=== PATIENT | female | born 1950 | race Caucasian/White ===

== ENCOUNTER → 2016-04-02 | Outpatient (CLI) | payer BC, MEDICARE ==
[2016-04-02 10:11] VITALS: BMI 26.8
== END | disposition home or self-care (01) ==
LOC: MNTWWP 08:53
PROVIDERS: ATTEND Internal Medicine Hematology & Oncology
DX: C85.15 Unspecified B-cell lymphoma, lymph nodes of inguinal region and lower limb (principal); R63.4 Abnormal weight loss; Z68.26 Body mass index [BMI] 26.0-26.9, adult

== ENCOUNTER → 2016-05-18 | Outpatient (CLI) | payer MEDICARE ==
--- NOTE | 2016-05-19 15:40 | PE ---
EXAMINATION TYPE: PET CT fusion skull to thigh DATE OF EXAM: 05/18/2016 10:15 AM COMPARISON: CT chest abdomen pelvis 02/28/2016 Prior PET/CT: 03/02/2016 HISTORY: Lymphoma TECHNIQUE: Following the intravenous administration of 12.6 by mCi of F-18 FDG, whole body images ar e performed from the skull base to the midthigh. Images are reviewed on the computer in the coronal, axial, and sagittal planes. Reconstructed rotating images are created on independent workstation an d reviewed on the computer. A localization and attenuation correction CT is performed in conjunctio n with the PET scan. DLP: 384.6 mGycm SCAN: Subsequent Scan Blood glucose: 92 mg/dL Average Mediastinum SUV: 1.5 Average Liver SUV: 2.7 FINDINGS: Overall there is been significant resolution of the radiotracer through enlarged lymphadeno albert. Previous masses are not apparent. Previous abnormal locations including the neck, mediastinum , upper abdomen and inguinal regions, which appear negative on the current study. NECK: No abnormal uptake THORAX: No abnormal uptake ABDOMEN: There is one focal area of increased uptake anterior to the psoas muscle and adjacent to the inferior vena cava, this measures 1.0 cm and has an SUV value of 9.0. Solitary residual involvement of lymphoma this level should be considered. PELVIS: No abnormal uptake OSSEOUS STRUCTURES: There is diffuse increased uptake throughout all osseous structures without one a nader more focal than another. This may be related to the patient's treatment. LOCALIZATION CT: No suspicious changes. The ascending thoracic aorta at the level of main pulmonary a rtery measures 3.7 cm. The main pulmonary artery at the bifurcation is 2.8 cm. Right renal calcificat ions appear to be present. There may be a mild right hydronephrosis. COMPARISON: Near-complete resolution of all lymphadenopathy with abnormal uptake. Solitary exception appears to lie between the inferior vena cava on the right psoas muscle at the pelvic inlet. Lymphade nopathy within this region is a 1.0 cm soft tissue density with uptake with resolution of previous de nsities. IMPRESSION: 1. Solitary area of abnormal uptake within the pelvic inlet at the inferior portion of the inferior v chris cava unchanged with an SUV value of 9 which is less than the 22 previous SUV. 2. Diffuse uptake throughout the osseous structures
== END | disposition home or self-care (01) ==
LOC: RADPETMAIN 08:22
PROVIDERS: ATTEND Internal Medicine Hematology & Oncology
DX: C85.10 Unspecified B-cell lymphoma, unspecified site (principal)
CPT/HCPCS: 78815; A9552

== ENCOUNTER → 2016-08-03 | Outpatient (CLI) | payer MEDICARE ==
--- NOTE | 2016-08-05 18:23 | PE ---
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 Chemotherapy completed in June 2016. TECHNIQUE: Following the intravenous administration of 12.1 mCi of F-18 FDG, whole body images are performed from the skull base to the midthigh. Images are reviewed on the computer in the coronal, a xial, and sagittal planes. Reconstructed rotating images are created on independent workstation and reviewed on the computer. A localization and attenuation correction CT is performed in conjunction with the PET scan. Glucose level: 90 mg/dL COMPARISON: 05/18/2016 and 03/02/2016 FINDINGS: PET: Physiologic FDG uptake within the neck. There is scattered mild FDG uptake at both robert, maximal SUV 3.9 on the right and 3.8 on the left; th is is in comparison to max SUV 2.1, previously. A 6 mm right lower lobe pulmonary nodule and 6 mm left midlung pulmonary nodule show no discrete FDG uptake and are unchanged from 03/02/2016. These can continue to be followed by CT. New focal area of increased FDG uptake in the region of the angelito hepatis that could correspond to a lymph node, maximal SUV 7.2. Some variable scattered bowel activity is likely physiologic. Some focal increased FDG uptake at the ileocecal valve also likely physiologic. The previously mentioned focal area of intense FDG uptake near the pelvic inlet posteriorly and towar ds the right now is confirmed to correspond to FDG within the right ureter. There has been marked interval clearance of the diffuse marrow uptake with some residual heterogeneou s marrow activity. ATTENUATION CORRECTION CT: Visualized paranasal sinuses and mastoid air cells are clear. No cervical lymphadenopathy. The heart is borderline to mildly enlarged without pericardial effusion. Right anterior chest wall in jection port with catheter tip at the cavoatrial junction. Aorta normal caliber with variant direct t akeoff of the left vertebral artery directly from the aortic arch. Mild atherosclerotic arch calcific ations. No thoracic lymphadenopathy seen. There is mild diffuse bronchial wall thickening and mild e mphysema compatible with COPD. Cholecystectomy clips. A couple of dropped cholecystectomy clips are noted. There is right-sided neph rolithiasis with two calculi measuring up to 3 mm. In addition, there appears to be a stable 1.2 cm c alculus in the right renal pelvis without significant hydronephrosis. No dilated small bowel, free fl uid, or free air. No mesenteric or retroperitoneal lymphadenopathy. Uterus and small ovaries are visualized. No abnormal fluid collection in the pelvis. Bladder partiall y urine distended. No pelvic lymphadenopathy seen. Bones: Chronic bony deformity on the right involving the mid thoracic spine. Mild degenerative change s at the hips. Degenerative changes mid to lower lumbar spine. Cervical spondylosis. IMPRESSION: 1. Marked clearance of the previous FDG uptake throughout the osseus structures compatible with prior marrow stimulation. 2. A number of foci of mild FDG uptake at the bilateral robert are nonspecific but increased from prior . This could reflect inflammatory uptake within hilar lymph nodes. Follow-up recommended. 3. New focal area of intense hypermetabolism at the angelito hepatis. This could correspond to a lymph n ode, in which case, close follow-up is recommended to exclude early recurrence. 4. COPD with a 6 mm pulmonary nodule, one within each lung, unchanged from 03/02/2016. Showing two ye ars of stability would help support a benign etiology. 5. Incidental right-sided nephrolithiasis and stable 1.2 cm calculus in the right renal pelvis. No hy dronephrosis at this time.
== END | disposition home or self-care (01) ==
LOC: RADPETMAIN 10:35
PROVIDERS: ATTEND Internal Medicine Hematology & Oncology
DX: C85.90 Non-Hodgkin lymphoma, unspecified, unspecified site (principal); J44.9 Chronic obstructive pulmonary disease, unspecified; R91.8 Other nonspecific abnormal finding of lung field
CPT/HCPCS: 78815; A9552

== ENCOUNTER → 2016-10-31 | Outpatient (CLI) | payer MEDICARE ==
--- NOTE | 2016-10-31 23:11 | MR ---
EXAMINATION TYPE: MR brain wo/w con DATE OF EXAM: 10/31/2016 COMPARISON: NONE HISTORY: Lt facial numbness, rt arm numbness, Lymphoma Feb 2016 TECHNIQUE: Multiplanar, multisequence images of the brain and brainstem is performed without and with IV contras t, utilizing 16 mL intravenous MultiHance . FINDINGS: Ventricles of normal size. There is no mass effect nor midline shift. There is no sign of i ntracranial hemorrhage. Brainstem is intact. There is a 4 mm focus of increased signal in the white m atter right frontal lobe. There is no evidence of cortical infarct. Corpus callosum appears normal. S ary turcica is normal. There is no pathologic enhancement. There is a large basilar artery and large left side posterior communicating artery. The left middle c erebral artery is probably filled mostly through the posterior communicating artery. There is a 3 mm focus of increased signal in the anterior right thalamus. IMPRESSION: Isolated 2 tiny foci of increased signal in the white matter on the right side as above. These are of doubtful clinical significance. I do not see a definite cause for the patient's symptoms . 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
== END ==
LOC: RADMRIMAIN 20:08
PROVIDERS: ATTEND Nurse Practitioner Family
DX: R90.89 Other abnormal findings on diagnostic imaging of central nervous system (principal)
CPT/HCPCS: 70553; A9577

== ENCOUNTER → 2016-11-06 | Outpatient (CLI) | payer MEDICARE ==
--- NOTE | 2016-11-06 22:32 | MR ---
EXAMINATION TYPE: MR cervical spine wo/w con DATE OF EXAM: 11/06/2016 COMPARISON: NONE HISTORY: Pain TECHNIQUE: Multiplanar, multisequence images of the cervical spine were acquired utilizing 10 mL intravenous Joseph ovist 10 contrast. Diffusion weighted imaging was performed. C2-C3: Facet arthropathy but no canal stenosis, disc herniation or foraminal encroachment. C3-C4: Degenerative disc disease and posterior spondylosis. No Canal stenosis. Facet arthropathy in t he left. Neural foramina patent. C4-C5: Moderate degenerative disc disease. There is a broad-based central disc protrusion which resul ts in anterior compression of the spinal cord. There is severe canal stenosis and bilateral severe fo raminal encroachment. Facet arthropathy and uncovertebral joint hypertrophy noted. C5-C6: Severe degenerative disc disease with broad-based disc protrusion capped by spur. Facet arthro albert and uncovertebral joint hypertrophy noted with severe canal stenosis and bilateral foraminal en croachment greater on the right. C6-C7: Severe degenerative disc disease with uncovertebral joint hypertrophy greater on the left and moderate left-sided foraminal encroachment. C7-T1: No disc herniation or canal stenosis. No foraminal encroachment. Cervical segments are intact. There is scoliotic curvature. Cervical spinal cord is of normal signa l. Craniovertebral junction relationships are within normal limits. IMPRESSION: 1. Severe multilevel degenerative disc disease with scoliotic curvature. 2. Disc protrusion capped by spur with hypertrophic change of the uncovertebral joints and facets at C4-5 and C5-6 result in severe canal stenosis and bilateral foraminal encroachment. 3. Severe degenerative disc disease C6 6-C7 with hypertrophic change of the uncovertebral joints grea ter on the left and moderate left foraminal encroachment.
--- NOTE | 2016-11-07 07:09 | US ---
EXAMINATION TYPE: US carotid duplex BILAT DATE OF EXAM: 11/06/2016 COMPARISON: NONE CLINICAL HISTORY: R53.1, R20.2 PARESTHSIA OF SKIN. EXAM MEASUREMENTS: RIGHT: Peak Systolic Velocity (PSV) cm/sec ----- Right CCA: 70.5 ----- Right ICA: 112.5 ----- Right ECA: 94.7 ICA/CCA ratio: 1.6 RIGHT: End Diastole cm/sec ----- Right CCA: 20.4 ----- Right ICA: 36.5 ----- Right ECA: 12.3 LEFT: Peak Systolic Velocity (PSV) cm/sec ----- Left CCA: 97.3 ----- Left ICA: ----- Left ECA: ICA/CCA ratio: LEFT: End Diastole cm/sec ----- Left CCA: 11.6 ----- Left ICA: ----- Left ECA: VERTEBRALS (direction of flow): Right Vertebral: Antegrade Left Vertebral: Not visualized Multiple carotid appearing vessels visualized on the right. Carotid on the left appears very small an d I was unable to visualize ICA/ECA scanning from the clavicle to the ear. Second tech (Poppy frias) came in to post scan. Suggest confirmation with another imaging modality. IMPRESSION: 1. Possible congenital abnormality or occlusion of the left internal carotid artery. Consider CTA con firmation. Criteria for Assigning % of Stenosis / Diameter reduction (Estimation based on the indirect measurements of the internal carotid artery velocities (ICA PSV). 1. Normal (no stenosis)=ICA PSV < 125 cm/s: ratio < 2.0: ICA EDV<40 cm/s. 2. Less than 50% stenosis=ICA PSV < 125 cm/s: ratio < 2.0: ICA EDV<40 cm/s. 3. 50 to 69% stenosis=ICA PSV of 125 to 230 cm/s: ration 2.0 ? 4.0: ICA EDV 40-100 cm/s. 4. Greater than 70% stenosis to near occlusion= ICA PSV > 230 cm/s: ratio > 4.0: ICA EDV > 100 cm/s. 5. Near occlusion= ICA PSV velocities may be low or undetectable: variable ratio and ICA EDV. 6. Total occlusion=unable to detect flow.
== END | disposition home or self-care (01) ==
LOC: RADMRIMAIN 17:13
PROVIDERS: ATTEND Nurse Practitioner Family
DX: M50.221 Other cervical disc displacement at C4-C5 level (principal); M50.323 Other cervical disc degeneration at C6-C7 level; M41.82 Other forms of scoliosis, cervical region; R20.2 Paresthesia of skin
CPT/HCPCS: 93880; 72156; A9581

== ENCOUNTER → 2016-11-26 | Day surgery (SDC) | payer MEDICARE | LOC: RADPROMAIN 10:46 | PROVIDERS: ATTEND Internal Medicine Hematology & Oncology | DX: C85.18 Unspecified B-cell lymphoma, lymph nodes of multiple sites (principal) ==

== ENCOUNTER 2016-11-27 08:07 | Day surgery (SDC) | payer MEDICARE ==
[2016-11-27] MEDS ORDERED: DIAZEPAM 5 MG TAB PO STA (08:47)
[2016-11-27 10:24] VITALS: RESP 18; TEMP 97.6
[2016-11-27 12:01] LABS: Glucose,CSF 46 mg/dL (40-70)
--- NOTE | 2016-11-27 12:07 | FL ---
PROCEDURE: Lumbar puncture. DATE: 11/27/2016 CLINICAL HISTORY: 66 year-old female history of lymphoma with facial and right arm numbness COMPLICATIONS: None SEDATION: Oral medication administered by nursing personnel. The patient and the patient's vital signs were mon itored by qualified independent radiology personnel. TECHNIQUE: The procedure and potential risks were explained to patient and an informed consent was obtained with teach back. Site and side was verified. A time out was performed. The patient was placed prone on the fluoroscopy table and the L3-L4 level was localized and the skin was marked and was prepped and draped in the usual sterile fashion. Lidocaine was used for local anesthesia. Utilizing fluoroscopic guidance a standard 20-gauge spinal n eedle was placed through the skin and into the subarachnoid space. Approximately 7 ml of clear, colorless cerebral spinal fluid was obtained without difficulty. The patient tolerated the procedure well and was sent back to the recovery room in satisfactory condi tion. The fluid was sent to the lab for analysis. The estimated blood loss was minimal. The patient's condition was unchanged following the procedure. Fluoroscopy time: 13 seconds Total images: None were sent. IMPRESSION: Successful accumulation of 7 mL of clear CSF. Laboratory analysis pending.
[2016-11-27 13:48] VITALS: PULSE 48
[2016-11-27 14:24] VITALS: BP 143/62
[2016-11-27 15:14] LABS: Appearance,CSF Clear
== END 2016-11-27 15:14 | disposition home or self-care (01) ==
LOC: RADXRMAIN 08:07 → 3OBS 10:08 → RADXRMAIN 15:14
PROVIDERS: ATTEND Internal Medicine Hematology & Oncology
DX: C85.90 Non-Hodgkin lymphoma, unspecified, unspecified site (principal)
CPT/HCPCS: 88108; 84157; 82945; 88184; 88185; 89050; 62270; J2001

== ENCOUNTER → 2016-12-14 | Outpatient (CLI) | payer MEDICARE ==
--- NOTE | 2016-12-15 13:30 | PE ---
EXAMINATION TYPE: PET CT fusion whole body DATE OF EXAM: 12/14/2016 COMPARISON: CT chest abdomen pelvis 02/28/2016 Prior PET/CT: None HISTORY: Non-Hodgkin's lymphoma TECHNIQUE: Following the intravenous administration of 13.17 mCi of F-18 FDG, whole body images are performed from the skull base to the midthigh. Images are reviewed on the computer in the coronal, a xial, and sagittal planes. Reconstructed rotating images are created on independent workstation and reviewed on the computer. A localization and attenuation correction CT is performed in conjunction with the PET scan. DLP: 398.46 mGycm SCAN: Initial Blood glucose: 109 mg/dL Average Mediastinum SUV: 2.2 Average Liver SUV: 3.4 FINDINGS: NECK: There is subtle increased uptake within a nodular density medial to the angle of the right man dible. This has an SUV value of 3.0 could be a involved lymph node. The bilateral submandibular saliv alen glands appear to have increased signal diffusely. THORAX: No abnormal uptake ABDOMEN: There is an area of marked uptake within the medial pelvic inlet, PET image 158. This has an SUV value of 18 suspicious for marked uptake. Corresponding CT structures not identified. This is so mewhat elongated suggesting ureter could be considered within the differential. PELVIS: Below the aortic bifurcation are 2 focal areas of increased uptake. On the left image 168 thi s measures 5.4 on the right this measures 6.3. Differential again could include ureters or marked upt nanci within lymph nodes. Suspicious lymphadenopathy however is not identified. There is a subtle area of increased uptake within the left iliac chain at the level of the femoral head. Image 194. This dawn s an SUV value of 3. Small involved lymph node could be considered. OSSEOUS STRUCTURES: No abnormal uptake LOCALIZATION CT: The ascending thoracic aorta at the level of main pulmonary artery is 3.3 cm. The ma in pulmonary artery at the bifurcation is 2.3 cm. There is a 1.3 cm right renal pelvic stone with mil d hydronephrosis. COMPARISON: Marked diminished lymphadenopathy on current exam is present compared to what was within the axillary regions, within the mediastinum and hilar regions, within the right axilla and breast ax illary tail, throughout the periaortic and retrocaval regions as well as iliac chains and bilateral i nguinal regions. IMPRESSION: 1. Marked response in lymph node size between the current examination and the comparison chest abdome n pelvis 2016 with apparent resolution of lymphadenopathy. 2. There is a couple focal areas of possible abnormal uptake including within the left iliac chain wi thin the pelvis and within the right neck at the level of the submandibular gland. 3. Questionable uptake in lymph nodes versus ureter radiotracer within the abdomen discussed above. O bvious correlation with lymphadenopathy is not identified. 4. Mildly obstructing large right renal pelvic stone with mild right hydronephrosis.
== END | disposition home or self-care (01) ==
LOC: RADPETMAIN 07:58
PROVIDERS: ATTEND Internal Medicine Hematology & Oncology
DX: C85.18 Unspecified B-cell lymphoma, lymph nodes of multiple sites (principal); N13.2 Hydronephrosis with renal and ureteral calculous obstruction
CPT/HCPCS: 78816

== ENCOUNTER → 2016-12-18 | Outpatient (CLI) | payer MEDICARE ==
--- NOTE | 2016-12-18 10:47 | XR ---
EXAMINATION TYPE: XR chest 2V DATE OF EXAM: 12/18/2016 COMPARISON: 02/07/2016 HISTORY: Lymphoma TECHNIQUE: Frontal and lateral views of the chest are obtained. FINDINGS: There is no focal air space opacity, pleural effusion, or pneumothorax seen. Hilar promine nce is thought to be vascular and related to pulmonary artery enlargement as the recent PET CT demons trated no evidence of adenopathy on 12/14/2016. Right-sided Mediport has been placed in the interim wi th its distal tip in the superior vena cava/right atrial junction. Rounded right midlung density repr esents either a nipple shadow or granuloma as it is unchanged from the prior exam. The cardiac silhou ette size is within normal limits. The osseous structures are intact. Minimal degenerative changes of the thoracic spine are noted. IMPRESSION: No acute cardiopulmonary process.
== END | disposition home or self-care (01) ==
LOC: RADXRMAIN 10:17
PROVIDERS: ATTEND Nurse Practitioner Family
DX: Z01.818 Encounter for other preprocedural examination (principal)
CPT/HCPCS: 71020

== ENCOUNTER 2017-03-16 12:41 | Emergency (ER) | payer MEDICARE ==
[2017-03-16] MEDS ORDERED: RX INFO: IV CONTRAST WAS GIVEN 1 EACH MISC MISCELLANE PRN (12:58)
--- NOTE | 2017-03-16 13:10 | ED ---
General Adult HPI - General Chief complaint: Syncope Stated complaint: Syncope Time Seen by Provider: 03/16/17 12:46 Source: patient, family, EMS, RN notes reviewed Mode of arrival: EMS Limitations: no limitations - History of Present Illness Initial comments: Patient is a pleasant 66-year-old female presenting to the emergency department following a syncopal episode. Episode occurred just prior to arrival. Patient states she was feeling fine. Patient is symptom free at this time. Patient does not recall the episode well. Family states they were walking with the patient when she suddenly became weak and unresponsive. Patient was only unresponsive for a couple of seconds. No injury. Patient does have a history of leukemia. 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 They did discuss this with the oncologist. - Related Data Home Medications Medication Instructions Recorded Confirmed Sertraline [Zoloft] 50 mg PO DAILY 02/20/16 03/16/17 Apixaban [Eliquis] 5 mg PO BID 03/16/17 03/16/17 Dexamethasone 4 mg PO BID 03/16/17 03/16/17 Dronabinol [Marinol] 2.5 mg PO BID 03/16/17 03/16/17 traMADol HCL [Ultram] 50 mg PO QID PRN 03/16/17 03/16/17 Previous Rx's Medication Instructions Recorded Nitrofurantoin Monohyd/M-Cryst 100 mg PO Q12HR #20 cap 03/16/17 [Macrobid] Allergies Allergy/AdvReac Type Severity Reaction Status Date / Time No Known Allergies Allergy Verified 03/16/17 13:20 Review of Systems ROS Statement: Those systems with pertinent positive or pertinent negative responses have been documented in the HPI. ROS Other: All systems not noted in ROS Statement are negative. Constitutional: Denies: fever Eyes: Denies: eye pain ENT: Denies: ear pain Respiratory: Denies: cough Cardiovascular: Denies: chest pain Endocrine: Denies: fatigue Gastrointestinal: Denies: abdominal pain Genitourinary: Denies: dysuria Musculoskeletal: Denies: back pain Skin: Denies: rash Neurological: Reports: confusion (family states there has been some confusion over the past week or so.). Denies: headache Past Medical History Past Medical History: Cancer Additional Past Medical History / Comment(s): Heart Murmur. Recent diagnosis of CLL; "POSS LYMPHOMA," PER PATIENT. Power Port History of Any Multi-Drug Resistant Organisms: None Reported Past Surgical History: Section, Cholecystectomy Additional Past Surgical History / Comment(s): COLONOSCOPY 2005. Past Anesthesia/Blood Transfusion Reactions: No Reported Reaction Past Psychological History: Anxiety Smoking Status: Never smoker Past Alcohol Use History: None Reported Past Drug Use History: None Reported - Past Family History Mother Family Medical History: Cancer Additional Family Medical History / Comment(s): Cervical cancer. Father Family Medical History: Myocardial Infarction (DE) General Exam Limitations: no limitations General appearance: alert, in no apparent distress Head exam: Present: atraumatic, other (port in the right frontal parietal region ) Eye exam: Present: normal appearance, PERRL, EOMI. Absent: nystagmus ENT exam: Present: normal oropharynx Neck exam: Present: normal inspection. Absent: tenderness Respiratory exam: Present: normal lung sounds bilaterally Cardiovascular Exam: Present: regular rate, normal rhythm GI/Abdominal exam: Present: soft. Absent: tenderness Extremities exam: Present: normal inspection. Absent: pedal edema, calf tenderness Neurological exam: Present: alert, altered, CN II-XII intact. Absent: motor sensory deficit Expanded Patient oriented to: Present: person, place. Absent: time Speech: Present: fluid speech Cranial nerves: EOM's Intact: Normal, Facial Sensation: Normal Sensory exam: Upper Extremity Light Touch: Normal, Lower Extremity Light Touch: Normal Motor strength exam: RUE: 5, LUE: 5, RLE: 4, LLE: 4 Psychiatric exam: Present: normal affect, normal mood Skin exam: Present: normal color Course Vital Signs 03/16/17 03/16/17 03/16/17 12:43 13:20 14:40 Temperature 97.1 F L 97.7 F Pulse Rate 56 L 57 L 55 L Respiratory 20 16 18 Rate Blood Pressure 100/56 103/62 91/55 O2 Sat by Pulse 96 97 95 Oximetry 03/16/17 15:30 Temperature Pulse Rate 60 Respiratory 18 Rate Blood Pressure 92/52 O2 Sat by Pulse 98 Oximetry EKG Findings - EKG Comments: EKG Findings:: sinus bradycardia 56. [place] 160. QRS 84. QT 408. QTC 393. Normal axis. Normal QRS. Nonspecific ST-T. Medical Decision Making - Medical Decision Making case was discussed in detail with Dr. Wheeler who recommends discharge with oral antibiotics. Patient reexamined. Patient and family updated. - Lab Data Result diagrams: 03/16/17 13:10 03/16/17 13:10 Lab Results 03/16/17 03/16/17 03/16/17 Range/Units 13:10 13:10 13:10 WBC 6.9 (3.8-10.6) k/uL RBC 2.96 L (3.80-5.40) m/uL Hgb 8.6 L (11.4-16.0) gm/dL Hct 27.4 L (34.0-46.0) % MCV 92.6 (80.0-100.0) fL MCH 29.0 (25.0-35.0) pg MCHC 31.3 (31.0-37.0) g/dL RDW 22.9 H (11.5-15.5) % Plt Count 453 H (150-450) k/uL Neutrophils % 95 % Lymphocytes % 3 % Monocytes % 2 % Eosinophils % 0 % Basophils % 0 % Neutrophils # 6.5 (1.3-7.7) k/uL Lymphocytes # 0.2 L (1.0-4.8) k/uL Monocytes # 0.1 (0-1.0) k/uL Eosinophils # 0.0 (0-0.7) k/uL Basophils # 0.0 (0-0.2) k/uL Hypochromasia Slight Poikilocytosis Slight Anisocytosis Moderate Macrocytosis Slight PT (9.0-12.0) sec INR (<1.2) APTT (22.0-30.0) sec Sodium 138 (137-145) mmol/L Potassium 4.1 (3.5-5.1) mmol/L Chloride 102 (98-107) mmol/L Carbon Dioxide 28 (22-30) mmol/L Anion Gap 8 mmol/L BUN 26 H (7-17) mg/dL Creatinine 0.60 (0.52-1.04) mg/dL Est GFR (MDRD) Af Amer >60 (>60 ml/min/1.73 sqM) Est GFR (MDRD) Non-Af >60 (>60 ml/min/1.73 sqM) Glucose 149 H (74-99) mg/dL Calcium 8.8 (8.4-10.2) mg/dL Magnesium 1.9 (1.6-2.3) mg/dL Total Bilirubin 0.6 (0.2-1.3) mg/dL AST 44 H (14-36) U/L ALT 46 (9-52) U/L Alkaline Phosphatase 82 (38-126) U/L Total Creatine Kinase <20 L (30-135) U/L CK-MB (CK-2) 1.9 (0.0-2.4) ng/mL CK-MB (CK-2) Rel Index Troponin I 0.042 H* (0.000-0.034) ng/mL Total Protein 5.5 L (6.3-8.2) g/dL Albumin 3.1 L (3.5-5.0) g/dL Urine Color Urine Appearance (Clear) Urine pH (5.0-8.0) Ur Specific [place] (1.001-1.035) Urine Protein (Negative) Urine Glucose (UA) (Negative) Urine Ketones (Negative) Urine Blood (Negative) Urine Nitrite (Negative) Urine Bilirubin (Negative) Urine Urobilinogen (<2.0) mg/dL Ur Leukocyte Esterase (Negative) Urine RBC (0-5) /hpf Urine WBC (0-5) /hpf Urine WBC Clumps (None) /hpf Urine Bacteria (None) /hpf Urine Mucus (None) /hpf 03/16/17 03/16/17 Range/Units 13:10 14:25 WBC (3.8-10.6) k/uL RBC (3.80-5.40) m/uL Hgb (11.4-16.0) gm/dL Hct (34.0-46.0) % MCV (80.0-100.0) fL MCH (25.0-35.0) pg MCHC (31.0-37.0) g/dL RDW (11.5-15.5) % Plt Count (150-450) k/uL Neutrophils % % Lymphocytes % % Monocytes % % Eosinophils % % Basophils % % Neutrophils # (1.3-7.7) k/uL Lymphocytes # (1.0-4.8) k/uL Monocytes # (0-1.0) k/uL Eosinophils # (0-0.7) k/uL Basophils # (0-0.2) k/uL Hypochromasia Poikilocytosis Anisocytosis Macrocytosis PT 11.1 (9.0-12.0) sec INR 1.2 H (<1.2) APTT 21.9 L (22.0-30.0) sec Sodium (137-145) mmol/L Potassium (3.5-5.1) mmol/L Chloride (98-107) mmol/L Carbon Dioxide (22-30) mmol/L Anion Gap mmol/L BUN (7-17) mg/dL Creatinine (0.52-1.04) mg/dL Est GFR (MDRD) Af Amer (>60 ml/min/1.73 sqM) Est GFR (MDRD) Non-Af (>60 ml/min/1.73 sqM) Glucose (74-99) mg/dL Calcium (8.4-10.2) mg/dL Magnesium (1.6-2.3) mg/dL Total Bilirubin (0.2-1.3) mg/dL AST (14-36) U/L ALT (9-52) U/L Alkaline Phosphatase (38-126) U/L Total Creatine Kinase (30-135) U/L CK-MB (CK-2) (0.0-2.4) ng/mL CK-MB (CK-2) Rel Index Troponin I (0.000-0.034) ng/mL Total Protein (6.3-8.2) g/dL Albumin (3.5-5.0) g/dL Urine Color Yellow Urine Appearance Turbid H (Clear) Urine pH 6.5 (5.0-8.0) Ur Specific [place] 1.018 (1.001-1.035) Urine Protein 1+ H (Negative) Urine Glucose (UA) Negative (Negative) Urine Ketones Negative (Negative) Urine Blood Moderate H (Negative) Urine Nitrite Negative (Negative) Urine Bilirubin Negative (Negative) Urine Urobilinogen <2.0 (<2.0) mg/dL Ur Leukocyte Esterase Large H (Negative) Urine RBC >182 H (0-5) /hpf Urine WBC >182 H (0-5) /hpf Urine WBC Clumps Many H (None) /hpf Urine Bacteria Moderate H (None) /hpf Urine Mucus Occasional H (None) /hpf - Radiology Data Radiology results: report reviewed (Computed tomography scan of the brain with and without contrast shows shunt catheter in good position. No acute intercranial abnormality.), image reviewed (chest x-ray shows no acute process.) Disposition Clinical Impression: Syncope, Urinary tract infection Disposition: HOME SELF-CARE Condition: Stable Instructions: Syncope (ED), Urinary Tract Infection in Women (ED) Additional Instructions: please follow-up with Dr. Menard and Dr. Gaona in the next couple of days for recheck. Return for passing out, weakness, worsening or changing symptoms or other concerns. Prescriptions: Nitrofurantoin Monohyd/M-Cryst [Macrobid] 100 mg PO Q12HR #20 cap Referrals: Jc Menard III, MD [Primary Care Provider] - 1-2 days Time of Disposition: 16:23
[2017-03-16 13:22] LABS: Anisocytosis Moderate; Basophils % (A) 0 %; Eosinophils % (A) 0 %; HCT 27.4 % (34.0-46.0); HGB 8.6 gm/dL (11.4-16.0); Hypochromasia Slight; Lymphocytes # (A) 0.2 k/uL (1.0-4.8); Lymphocytes % (A) 3 %; MCHC 31.3 g/dL (31.0-37.0); MCV 92.6 fL (80.0-100.0); Macrocytosis Slight; Monocytes # (A) 0.1 k/uL (0-1.0); Monocytes % (A) 2 %; Neutrophils # (A) 6.5 k/uL (1.3-7.7); Neutrophils % (A) 95 %; Platelet Count 453 k/uL (150-450); Poikilocytosis Slight; RBC 2.96 m/uL (3.80-5.40); RDW 22.9 % (11.5-15.5); WBC 6.9 k/uL (3.8-10.6)
[2017-03-16 13:37] LABS: ALT 46 U/L (9-52); AST 44 U/L (14-36); Albumin 3.1 g/dL (3.5-5.0); Alkaline Phosphatase 82 U/L (38-126); Anion Gap 8 mmol/L; Blood Urea Nitrogen 26 mg/dL (7-17); Calcium 8.8 mg/dL (8.4-10.2); Carbon Dioxide 28 mmol/L (22-30); Chloride 102 mmol/L (98-107); Glucose 149 mg/dL (74-99); INR 1.2 (<1.2); Magnesium 1.9 mg/dL (1.6-2.3); Partial Thromboplastin Time 21.9 sec (22.0-30.0); Potassium 4.1 mmol/L (3.5-5.1); Prothrombin Time 11.1 sec (9.0-12.0); Sodium 138 mmol/L (137-145); Total Bilirubin 0.6 mg/dL (0.2-1.3); Total Protein 5.5 g/dL (6.3-8.2)
[2017-03-16 13:51] LABS: Creatine Kinase <20 U/L (30-135)
[2017-03-16 14:03] LABS: Creatine Kinase MB 1.9 ng/mL (0.0-2.4)
[2017-03-16 14:05] LABS: Troponin I 0.042 ng/mL (0.000-0.034)
[2017-03-16 14:42] LABS: Appearance,Urine Turbid (Clear); Bacteria,Urine Moderate /hpf; Bilirubin,Urine Negative (Negative); Blood,Urine Moderate (Negative); Color,Urine Yellow; Glucose,Urine (UA) Negative (Negative); Ketones,Urine Negative (Negative); Leukocyte Esterase,Urine Large (Negative); Mucus,Urine Occasional /hpf; Nitrite,Urine Negative (Negative); PH, Urine 6.5 (5.0-8.0); Protein,Urine 1+ (Negative); RBC,Urine >182 /hpf (0-5); Specific Gravity,Urine 1.018 (1.001-1.035); Urobilinogen,Urine <2.0 mg/dL (<2.0); WBC,Urine >182 /hpf (0-5)
[2017-03-16 14:43] VITALS: RESP 18
--- NOTE | 2017-03-16 15:24 | CT ---
EXAMINATION TYPE: CT brain wo/w con DATE OF EXAM: 03/16/2017 COMPARISON: NONE HISTORY: weakness and syncope. history of lymphoma. CT DLP: 2108.4 mGycm Automated exposure control for dose reduction was used. CONTRAST: CT scan of the head is performed without and with IV Contrast, patient injected with 100 mL of Omnipa que 300. FINDINGS: There is fluid level in the left maxillary sinus. There is some cerebral cortical atrophy. There is n o mass effect nor midline shift. There is no sign of intracranial hemorrhage. There is a ventricular shunt catheter with the tip in the third ventricle. The calvarium is intact. I see no pathologic enha ncement. There is no hydrocephalus. IMPRESSION: Shunt catheter appears in good position. No hydrocephalus. No acute intracranial abnormality.
--- NOTE | 2017-03-16 15:56 | XR ---
EXAMINATION TYPE: XR chest 2V DATE OF EXAM: 03/16/2017 COMPARISON: 12/18/2016 HISTORY: Syncope TECHNIQUE: Frontal and lateral views of the chest are obtained. FINDINGS: There is no heart failure nor confluent pneumonic infiltrate. There is right central venou s catheter with tip in the right atrium. There is no sign of pneumothorax. There are chest leads. The re is no evidence of pleural effusion. IMPRESSION: No active cardiopulmonary disease. No change.
[2017-03-16] MEDS ORDERED: NITROFURANTOIN MONOHYD/M-CRYST 100 MG CAP PO STA (16:16)
[2017-03-16 16:47] VITALS: BP 99/54; PULSE 52; TEMP 98.9
== END 2017-03-16 16:46 | disposition home or self-care (01) ==
LOC: EC 12:41
DX: R55 Syncope and collapse (principal); N39.0 Urinary tract infection, site not specified; F41.9 Anxiety disorder, unspecified; Z85.9 Personal history of malignant neoplasm, unspecified; Z79.01 Long term (current) use of anticoagulants; Z79.52 Long term (current) use of systemic steroids; Z79.899 Other long term (current) drug therapy
CPT/HCPCS: 36415; 80053; 82550; 82553; 83735; 84484; 85025; 85610; 85730; 81001; 71020; 70470; 99285; Q9967; 93005